=== PATIENT | female | born 2000 | race Two or more races ===

== ENCOUNTER → 2018-10-01 | Outpatient (CLI) | payer SELFPAY ==
--- NOTE | 2018-10-01 16:19 | RADIOLOGY REPORT (SQ) ---
EXAM DESCRIPTION: U/S OB 14+ TRNABD 1GES W/O DOP COMPLETED DATE/TIME: 10/01/2018 4:03 pm REASON FOR STUDY: Z34.03 ENCNTR FOR SUPRVSN OF NORMAL FIRST PREG, THIRD TRIMESTER Z34.03 ENCNTR FOR SUPRVSN OF NORMAL FIRST PREG, THIRD TRIMES COMPARISON: None. TECHNIQUE: Static and Dynamic grayscale imaging performed of gravid uterus using transabdominal appr oac. Additional selected color Doppler and spectral images recorded. All stored on PACS. LIMITATIONS: None. FINDINGS: FETUSES SEEN:1 EGA: 30 weeks 6 days Calculated using BPD,FL,HC,AC documented on images. No discrepancy with clinica l dates. TALI: 12/04/2018 EFW: 1,546 grams PERCENTILE: 20 CHRISTA: Adequate amount. PLACENTA: Anterior. GRADE: I PRESENTATION: Breech. ANATOMY: HEART RATE: 133 beats per minute. FOUR CHAMBER HEART: Visualized. THREE VESSEL CORD: Yes. CORD INSERTION: Visualized. KIDNEYS AND BLADDER: Visualized. Appear normal. STOMACH: Visualized. Appears normal. SPINE: Normal as visualized. BRAIN AND LATERAL VENTRICLES: Normal as visualized. OTHER: No other significant finding. MATERNAL ADNEXA: Maternal ovaries not visualized. CERVICAL LENGTH: 3.0 cm. Closed. OTHER: No other significant finding. IMPRESSION: LIVING INTRAUTERINE . ESTIMATED GESTATIONAL AGE 30 weeks 6 days. NO VISUALIZED ANOMALIES. Trimester of : Third trimester - 28 weeks to delivery. TECHNICAL DOCUMENTATION: JOB ID: [id number] [employer]- All Rights Reserved Reading location - IP/workstation name: [email or web address]
== END ==
LOC: RAD 15:10
PROVIDERS: ATTEND Midwife
DX: Z34.03 Encounter for supervision of normal first pregnancy, third trimester (principal)
CPT/HCPCS: 76805

== ENCOUNTER 2018-10-24 17:02 | Observation (INO) | payer SELFPAY ==
[2018-10-24 18:04] LABS: URINE AMPHETAMINES SCREEN NEGATIVE; URINE BARBITURATES SCREEN NEGATIVE; URINE BENZODIAZEPINES SCREEN NEGATIVE; URINE COCAINE SCREEN NEGATIVE; URINE MARIJUANA (THC) SCREEN NEGATIVE; URINE METHADONE SCREEN NEGATIVE; URINE PHENCYCLIDINE SCREEN NEGATIVE
[2018-10-24 18:07] LABS: URINE CREATININE 119.9 mg/dL (16-327)
[2018-10-24 18:57] LABS: ABSOLUTE BASOPHILS # (AUTO) 0.1 10^3/uL (0.0-0.2); ABSOLUTE LYMPHOCYTES (AUTO) 2.3 10^3/uL (0.5-4.7); ABSOLUTE MONOCYTES (AUTO) 0.5 10^3/uL (0.1-1.4); ABSOLUTE NEUT (AUTO) 5.3 10^3/uL (1.7-8.2); BASOPHILS % (AUTO) 1.5 % (0-2); EOSINOPHILS % (AUTO) 0.3 % (0-6); HEMATOCRIT 32.7 % (36.0-47.0); HEMOGLOBIN 11.1 g/dL (12.0-15.5); LYMPHOCYTES % (AUTO) 27.3 % (13-45); MEAN CORPUSCULAR VOLUME 82 fl (80-97); PLATELET COUNT 216 10^3/uL (150-450); RED BLOOD COUNT 3.97 10^6/uL (3.72-5.28); RED CELL DISTRIBUTION WIDTH 14.8 % (11.5-14.0); SEGMENTED NEUTROPHILS % (AUTO) 64.9 % (42-78); TOTAL CELLS COUNTED % (AUTO) 100 %; WHITE BLOOD COUNT 8.2 10^3/uL (4.0-10.5)
[2018-10-24 19:09] LABS: ALANINE AMINOTRANSFERASE 28 U/L (9-52); ALBUMIN 2.3 g/dL (3.5-5.0); ALKALINE PHOSPHATASE 159 U/L (38-126); ASPARTATE AMINO TRANSFERASE 29 U/L (14-36); BILIRUBIN,DIRECT 0.1 mg/dL (0.0-0.4); BILIRUBIN,TOTAL 0.1 mg/dL (0.2-1.3); BLOOD UREA NITROGEN 14 mg/dL (7-20); CALCIUM 8.8 mg/dL (8.4-10.2); GLUCOSE 110 mg/dL (75-110); POTASSIUM 3.9 mmol/L (3.6-5.0); TOTAL PROTEIN 4.8 g/dL (6.3-8.2); URIC ACID 7.3 mg/dL (2.5-6.2)
[2018-10-24 19:19] LABS: ANION GAP 4 (5-19); CARBON DIOXIDE 22 mmol/L (22-30); CHLORIDE 109 mmol/L (98-107); SODIUM 134.9 mmol/L (137-145)
[2018-10-24 19:25] LABS: UR PRO/CREAT RATIO RESULT 22.3 mg/mg (0.0-0.2); URINE PROTEIN 2678.5 mg/dL (<12)
[2018-10-24] MEDS ORDERED: RINGERS SOLUTION,LACTATED 1,000 ML IV PRN (20:27)
[2018-10-24] MEDS ORDERED: RINGERS SOLUTION,LACTATED 1,000 ML IV ONE (20:27)
[2018-10-24] MEDS ORDERED: BETAMET ACET/BETAMET NA INJ 6 MG/1 ML ONE (21:49)
[2018-10-24] MEDS ORDERED: MAGNESIUM SULFATE 4 GM/100 ML RTUPB IV ONE ×2 (21:49→22:15)
[2018-10-24] MEDS ORDERED: MAGNESIUM SULFATE 20 GM/500 ML RTUINJ IV ONE (21:49)
--- NOTE | 2018-10-24 21:50 | PDOC TRANSFER SUMMARY ---
General Admission Date/PCP: 10/24/18 20:24 CHAR SOPHIA MORALES Admission Date: 10/24/18 Transfer Date: 10/24/18 Accepting Facility: [facility] Accepting Physician: Jack - Transfer Diagnosis (1) Pre-eclampsia Is this a current diagnosis for this admission?: Yes Diagnosis Summary: She presents with high blood pressure, swelling and protein in the urine. - Transfer Medications Home Medications: No122/Iron/Folic Acid [ Multi Tablet] 1 tab PO DAILY 10/24/18 Transfer Medications: Current Medications Lactated Ringer's (Lactated Ringers 1000 Ml Iv Soln) 1,000 mls @ 125 mls/hr IV CONTINUOUS PRN PRN Reason: THIS MED IS NOT "PRN" Stop: 11/23/18 20:26 - Allergies Allergies/Adverse Reactions: acetaminophen Allergy (Verified 10/24/18 17:32) Hospital Course Hospital Course: Evaluation shows elevated blood pressures, swelling and protein in the urine. Physical Exam Vital Signs: Intake & Output 10/23/18 10/24/18 10/25/18 06:59 06:59 06:59 Weight 67.2 kg General appearance: PRESENT: no acute distress, well-developed, well-nourished Respiratory exam: PRESENT: clear to auscultation darline. ABSENT: rales, rhonchi, wheezes Cardiovascular exam: PRESENT: RRR. ABSENT: diastolic murmur, rubs, systolic murmur GI/Abdominal exam: PRESENT: other - gravid Gentrourinary exam: PRESENT: other - closed thick, ballotable vertex Musculoskeletal exam: PRESENT: other - pitting edema Results Laboratory Results: 10/24/18 18:10 10/24/18 18:10 10/24/18 10/24/18 10/24/18 18:10 18:10 18:10 WBC 8.2 RBC 3.97 Hgb 11.1 L Hct 32.7 L MCV 82 MCH 28.0 MCHC 34.0 RDW 14.8 H Plt Count 216 Seg Neutrophils % 64.9 Lymphocytes % 27.3 Monocytes % 6.0 Eosinophils % 0.3 Basophils % 1.5 Absolute Neutrophils 5.3 Absolute Lymphocytes 2.3 Absolute Monocytes 0.5 Absolute Eosinophils 0.0 Absolute Basophils 0.1 Sodium 134.9 L Potassium 3.9 Chloride 109 H Carbon Dioxide 22 Anion Gap 4 L BUN 14 Creatinine 0.75 Est GFR ( Amer) > 60 Est GFR (Non-Af Amer) > 60 Glucose 110 Uric Acid 7.3 H Calcium 8.8 Total Bilirubin 0.1 L AST 29 ALT 28 Alkaline Phosphatase 159 H Total Protein 4.8 L Albumin 2.3 L Blood Type A POSITIVE Antibody Screen NEGATIVE Impressions: She appears to have severe preeclampsia. Plan Discharge Plan: Plan transfer to a tertiary care for severe preeclampia. Time Spent: Less than 30 Minutes
[2018-10-24] MEDS ORDERED: MAGNESIUM SULFATE 20 GM/500 ML RTUINJ IV PRN (21:52)
[2018-10-24] MEDS ORDERED: HYDRALAZINE HCL INJ/PF 20 MG/1 ML SDV IV ONE (22:15)
[2018-10-24] MEDS ORDERED: BETAMET ACET/BETAMET NA INJ 6 MG/1 ML IM ONE (22:15)
[2018-10-24] MEDS ORDERED: HYDRALAZINE HCL INJ/PF 20 MG/1 ML SDV ONE (22:28)
--- NOTE | 2018-10-25 01:29 | Non Stress Test Report ---
Non Stress Test Datetime Report Generated by CPN: 10/25/2018 01:28 DEMOGRAPHIC Test Number: 1 EGA NST: 34.3 INDICATION Indication for Study: Ordered by Provider MONITORING Monitor Explained: Monitor Explained; Test Explained; Patient Verbalized Understanding Time on Monitor: 10/24/2018 17:20 Time off Monitor: 10/24/2018 19:30 NST Duration: 130 NST INTERVENTIONS NST Interventions: PO Hydration; Reposition Patient Physician Notified NST: Dr. Alston BABY A: [id number] BABY A Movement : Present Contraction Frequency : Irritability FHR Baseline : 145 Accelerations : Prolonged Decelerations : None Variability : Moderate 6-25bpm NST Review: Meets Criteria for Reactive NST NST Review: Meets Criteria for Reactive NST NST Review and Verified By : TAMIKA Painting NSDerrick Results: Reactive NST REPORT Report Trigger: Send Report
== END 2018-10-25 00:38 | disposition short-term general hospital (02) ==
LOC: LC 17:02 → LR 20:24
PROVIDERS: ADMIT Obstetrics & Gynecology; ATTEND Obstetrics & Gynecology
PROC: 4A0HXCZ Measurement of Products of Conception, Cardiac Rate, External Approach (ICD-10-PCS; principal; 2018-10-24)
DX: O14.13 Severe pre-eclampsia, third trimester (principal); Z88.6 Allergy status to analgesic agent; Z3A.34 34 weeks gestation of pregnancy
CPT/HCPCS: 59025; 94760; 96372; 86900; 86901; 36415; 86850; 83615; 84156; 84550; 82570; 85025; 86592; 80053; 80307; J3475 ×2; J0360; J0702